=== PATIENT | female | born 1990 | race Caucasian/White ===

== ENCOUNTER 2018-09-22 06:10 | Emergency (ER) | payer BC, OTHER ==
--- NOTE | 2018-09-22 06:28 | PDOC ---
Attending Attestation - Resident Resident Name: Fer Anthony - ED Attending Attestation I have performed the following: I have examined & evaluated the patient, The case was reviewed & discussed with the resident, I agree w/resident's findings & plan, Exceptions are as noted - HPI HPI: 09/22/18 06:28 The patient is a 27 year old female with a PMH of neutropenia who presents with right shoulder pain and probable dislocation during sexual intercourse. Patient states she has dislocated her right shoulder 3 other times in the past. Patient reports the last time she dislocated her shoulder she was evaluated by ortho and sent to physical therapy. She notes the right shoulder pain today feels like her prior dislocations. The patient denies chest pain, shortness of breath, headache and dizziness. Denies fever, chills, nausea, vomit, diarrhea and constipation. Denies dysuria, frequency, urgency and hematuria. Allergies: NKA Past surgical history: None reported Social history: No reported alcohol, drug or cigarette use. - Physicial Exam PE: 09/22/18 07:13 GENERAL: Awake, alert, and fully oriented, in no acute distress HEAD: No signs of trauma EYES: PERRLA, EOMI, sclera anicteric, conjunctiva clear ENT: Oropharynx clear without exudates. Moist mucosa NECK: Normal ROM, supple, no lymphadenopathy, JVD, or masses LUNGS: Breath sounds equal, clear to auscultation bilaterally. No wheezes, and no crackles HEART: Regular rate and rhythm, normal S1 and S2, no murmurs, rubs or gallops ABDOMEN: Soft, nontender, normoactive bowel sounds. No guarding, no rebound. No masses EXTREMITIES: RUE reduced while pt was ranging it. No deformity. 2+ radial pulse. Normal sensation over R shoulder. Normal sensation and strength to distal RUE. NEUROLOGICAL: Normal speech, cranial nerves intact, equal strength and sensation b/l SKIN: Warm, Dry, normal turgor, no rashes or lesions noted. - Medical Decision Making 09/22/18 07:14 27yo F hx shoulder dislocation presents with shoulder dislocation that self reduced in ED. RUE NVI. Plan for UPT, CXR to r/o fracture, likely DC. Case signed out to Dr. Combs for further mgmt/dispo
--- NOTE | 2018-09-22 06:35 | PDOC ---
History of Present Illness - History of Present Illness Initial Comments: 09/22/18 06:27 Ms. Newby is a 27 yo female w/ pmh of neutropenia who presents for evaluation of R shoulder pain. Patient reports she believes shoulder is dislocated as she has had several similar instances in the past. Patient reports pain started during sex this AM. Denies any trauma to area. The patient denies chest pain, shortness of breath, headache and dizziness. Denies fever, chills, nausea, vomit, diarrhea and constipation. Denies dysuria, frequency, urgency and hematuria. <Fer Anthony - Last Filed: 09/22/18 07:11> <Ian Combs - Last Filed: 09/22/18 07:57> - General Chief Complaint: Shoulder Dislocation Stated Complaint: R ARM INJURY Time Seen by Provider: 09/22/18 06:12 Past History - Suicide/Smoking/Psychosocial Hx Smoking History: Never smoked Have you smoked in the past 12 months: No Information on smoking cessation initiated: No Hx Alcohol Use: No Drug/Substance Use Hx: No <Fer Anthony - Last Filed: 09/22/18 07:11> <Ian Combs - Last Filed: 09/22/18 07:57> - Past Medical History Allergies/Adverse Reactions: Allergies Allergy/AdvReac Type Severity Reaction Status Date / Time No Known Allergies Allergy Verified 09/22/18 06:18 Home Medications: Ambulatory Orders NK [No Known Home Medication] 09/22/18 Review of Systems - Review of Systems Comments:: 09/22/18 06:29 GENERAL/CONSTITUTIONAL: No fever or chills. No weakness. HEAD, EYES, EARS, NOSE AND THROAT: No change in vision. No ear pain or discharge. No sore throat. CARDIOVASCULAR: No chest pain or shortness of breath RESPIRATORY: No cough, wheezing, or hemoptysis. GASTROINTESTINAL: No nausea, vomiting, diarrhea or constipation. GENITOURINARY: No dysuria, frequency, or change in urination. MUSCULOSKELETAL: +R shoulder pain as described. SKIN: No rash NEUROLOGIC: No headache, vertigo, loss of consciousness, or change in strength/ sensation. ENDOCRINE: No increased thirst. No abnormal weight change HEMATOLOGIC/LYMPHATIC: No anemia, easy bleeding, or history of blood clots. ALLERGIC/IMMUNOLOGIC: No hives or skin allergy. <Fer Anthony - Last Filed: 09/22/18 07:11> *Physical Exam - Vital Signs Last Vital Signs Temp Pulse Resp BP Pulse Ox 92 H 22 H 141/81 99 09/22/18 06:10 09/22/18 06:10 09/22/18 06:10 09/22/18 06:10 - Physical Exam Comments: 09/22/18 06:29 GENERAL: Awake, alert, and fully oriented, in no acute distress HEAD: No signs of trauma, normocephalic, atraumatic EYES: PERRLA, EOMI, sclera anicteric, conjunctiva clear ENT: Auricles normal inspection, hearing grossly normal, nares patent, oropharynx clear without exudates. Moist mucosa NECK: Normal ROM, supple, no lymphadenopathy, JVD, or masses LUNGS: No distress, speaks full sentences, clear to auscultation bilaterally HEART: Regular rate and rhythm, normal S1 and S2, no murmurs, rubs or gallops, peripheral pulses normal and equal bilaterally. ABDOMEN: Soft, nontender, normoactive bowel sounds. No guarding, no rebound. No masses EXTREMITIES: +R shoulder exam changed during examination. Originally TTP at R shoulder and patient unable to move due to pain. Patient moved and reported shoulder pain alleviated and patient able to move w/out difficulty. Extremity neurovascularly intact throughout exam. NEUROLOGICAL: Cranial nerves II through XII grossly intact. Normal speech, normal gait, no focal sensorimotor deficits SKIN: Warm, Dry, normal turgor, no rashes or lesions noted. <Fer Anthony - Last Filed: 09/22/18 07:11> - Vital Signs Last Vital Signs Temp Pulse Resp BP Pulse Ox 98.2 F 92 H 22 H 141/81 99 09/22/18 07:43 09/22/18 06:10 09/22/18 06:10 09/22/18 06:10 09/22/18 06:10 <Ian Combs - Last Filed: 09/22/18 07:57> ED Treatment Course - RADIOLOGY Radiology Studies Ordered: Category Date Time Status SHOULDER-RIGHT [RAD] Stat Radiology 09/22/18 06:12 Ordered <Fer Anthony - Last Filed: 09/22/18 07:11> - ADDITIONAL ORDERS Additional order review: Laboratory Results 09/22/18 06:31 Urine HCG, Qual Negative <Ian Combs - Last Filed: 09/22/18 07:57> Medical Decision Making - Medical Decision Making 09/22/18 06:31 Ms. Newby is a 27 yo female w/ pmh as described who presents for evaluation of suspected shoulder dislocation. Patient exam suddenly improved while interviewer present c/w shoulder self reducing. Patient will provide urine and have XR to confirm shoulder in place. 09/22/18 06:57 Patient currently pending imaging. Patient signed out to Dr. Combs for further evaluation. <Fer Anthony - Last Filed: 09/22/18 07:11> *DC/Admit/Observation/Transfer <Fer Anthony - Last Filed: 09/22/18 07:11> <Ian Combs - Last Filed: 09/22/18 07:57> Diagnosis at time of Disposition: Shoulder pain, right Qualifiers: Chronicity: acute Qualified Code(s): M25.511 - Pain in right shoulder - Discharge Dispostion Disposition: HOME Condition at time of disposition: Fair - Referrals Referrals: Alejandro Schwartz MD [Staff Physician] - - Patient Instructions Printed Discharge Instructions: DI for Shoulder Dislocation Additional Instructions: You were evaluated today in the ER for your shoulder pain which resolved suddenly in the ER. Your Xrays were normal and you are safe for follow-up outpatient for further evaluation. Return to ER if any further pain, difficulty moving your shoulder, or other concerning symptoms.
[2018-09-22 06:52] VITALS: BP 141/81; BMI 24.2
[2018-09-22 07:43] VITALS: TEMP 98.2
[2018-09-22 08:13] VITALS: PULSE 75
== END 2018-09-22 08:13 | disposition home or self-care (01) ==
LOC: JER 06:10
DX: M25.511 Pain in right shoulder (principal); D70.9 Neutropenia, unspecified
CPT/HCPCS: 73030-TC-RT-FY; 84703; 99283-25

== ENCOUNTER 2019-02-24 12:29 | Emergency (ER) | payer BC, OTHER ==
[2019-02-24] MEDS ORDERED: morphine CARPU-JECT 4 MG/1 ML DISP.SYRIN IVPUSH ONE (12:39)
[2019-02-24] MEDS ORDERED: morphine SULFATE 4 MG/ML VIAL ONE (12:39)
--- NOTE | 2019-02-24 12:51 | PDOC ---
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 Last dislocation was September 2018. Per the patient, she used fentanyl previously for the reduction and had severe nausea and vomiting. Currently having right shoulder pain without numbness and motor deficit in the right wrist and fingers. Past History - Past Medical History Allergies/Adverse Reactions: Allergies Allergy/AdvReac Type Severity Reaction Status Date / Time No Known Allergies Allergy Verified 02/24/19 12:53 Home Medications: Ambulatory Orders NK [No Known Home Medication] 09/22/18 COPD: No - Suicide/Smoking/Psychosocial Hx Smoking History: Never smoked Have you smoked in the past 12 months: No Hx Alcohol Use: No Drug/Substance Use Hx: No Review of Systems - Review of Systems Able to Perform ROS?: Yes Is the patient limited Korean proficient: No Constitutional: No: Chills, Diaphoresis, Fever, Weakness HEENTM: No: Eye Pain, Ear Pain, Nose Pain, Tinnitus, Throat Pain, Mouth Pain Respiratory: No: Cough, Shortness of Breath, Hemoptysis Cardiac (ROS): No: Chest Pain, Lightheadedness, Palpitations, Syncope, Chest Tightness ABD/GI: No: Constipated, Diarrhea, Nausea, Rectal Bleeding, Vomiting, Tarry Stools : No: Burning, Dysuria, Hematuria, Incontinence Musculoskeletal: Yes: Joint Pain (right shoulder pain). No: Back Pain, Muscle Weakness Integumentary: No: Bruising, Erythema, Flushing, Rash Neurological: No: Headache, Numbness, Tingling, Tremors Psychiatric: No: Change in Appetite Endocrine: No: Unexplained Weight Gain Hematologic/Lymphatic: No: Anemia *Physical Exam - Physical Exam General Appearance: Yes: Nourished, Appropriately Dressed. No: Apparent Distress, Intoxicated HEENT: positive: EOMI, MILLIE, Normal Voice, Symmetrical, Pharynx Normal, Hearing Grossly Normal. negative: Pale Conjunctivae, Scleral Icterus (R), Scleral Icterus (L), Muffled/Hoarse voice, Pharyngeal Erythema, Tonsillar Exudate, Tonsillar Erythema, Nasal Congestion, Rhinorrhea, Sinus Tenderness, Hearing Decreased Neck: positive: Trachea midline, Supple. negative: Tender, Lymphadenopathy (R) , Lymphadenopathy (L), Tender lateral, Tender midline Respiratory/Chest: positive: Lungs Clear, Normal Breath Sounds. negative: Chest Tender, Respiratory Distress, Accessory Muscle Use, Crackles, Rales, Rhonchi, Stridor, Wheezing Cardiovascular: positive: Regular Rhythm, Regular Rate, S1, S2. negative: Systolic Murmur Gastrointestinal/Abdominal: positive: Normal Bowel Sounds, Flat, Soft. negative : Tender Lymphatic: negative: Adenopathy Musculoskeletal: positive: Normal Inspection. negative: CVA Tenderness, Vertebral Tenderness Extremity: positive: Normal Capillary Refill, Tender (right shoulder joint). negative: Normal Inspection (visibly dislocated), Normal Range of Motion ( unable to abduct right shoulder), Swelling, Calf Tenderness Integumentary: positive: Normal Color, Dry, Warm. negative: Swelling, Ecchymosis Neurologic: positive: patient care specialist II-XII NML intact, Fully Oriented, Alert, Normal Mood/ Affect. negative: EOM Palsy, Facial Droop, Sensory Deficit (intact neurovascular in the right arm pre reduction) Medical Decision Making - Medical Decision Making 28 yo F with a hx of recurrent shoulder dislocations on the right side presents to the emergency department with right shoulder pain after throwing a joseph pin at 11:45 am. Initial vitals: Initial Vital Signs Temp Pulse Resp BP Pulse Ox 98.5 F 80 16 160/90 100 02/24/19 12:30 02/24/19 12:30 02/24/19 12:30 02/24/19 12:30 02/24/19 12:30 Work up: serum and right shoulder xray. suspect anterior shoulder dislocation. pre-procedure xray shows anterior right shoulder dislocation. Patient to have procedure of reduction of the right shoulder. Patient was given benefits and risks associated with the procedure. In addition, will also be getting consent for sedation. Consent form signed by the patient and in physical chart. Negative Patient was given 160 mg of propofol, 80 mg of ketamine, and 4 mg of versed. A reduction was attempted but the patient was still awake and the shoulder was initially reduced and then dislocated. Anesthesia was called and the SPRAY MIXER gave 300 mg push of profol. Patient's shoulder was successfully reduced and post procedure xrays shows correction of shoulder dislocation. Post reduction neurovascular inact. Will refer to Dr. Rebollar for follow up care. *DC/Admit/Observation/Transfer Diagnosis at time of Disposition: Anterior shoulder dislocation - Discharge Dispostion Disposition: HOME Decision to Admit order: No - Referrals Referrals: Efraín Rebollar DO [Staff Physician] - - Patient Instructions Printed Discharge Instructions: DI for Shoulder Dislocation Additional Instructions: You were seen in the emergency department for the evaluation of your shoulder dislocation. It was successfully reduced. Please return to the emergency department if it dislocated again. Please follow up with Dr. Rebollar within 1 week after discharge. Do not do physical activity with the right shoulder. - Post Discharge Activity
[2019-02-24 12:53] VITALS: PULSE 80; TEMP 98.5; BMI 25.8
[2019-02-24] MEDS ORDERED: ONDANSETRON 4 MG/2 ML VIAL IVPUSH ONE (12:54)
[2019-02-24] MEDS ORDERED: PROPOFOL 200 MG/20 ML VIAL IVPUSH ONE (13:17)
[2019-02-24] MEDS ORDERED: KETAMINE HCL 200 MG/20 ML VIAL IVPUSH ONE (13:18)
[2019-02-24] MEDS ORDERED: ONDANSETRON 4 MG/2 ML VIAL ONE (13:20)
[2019-02-24] MEDS ORDERED: SODIUM CHLORIDE 1,000 ML IV STA (13:38)
--- NOTE | 2019-02-24 14:02 | PDOC ---
Attending Attestation - Resident Resident Name: Newton Ramey - ED Attending Attestation I have performed the following: I have examined & evaluated the patient, The case was reviewed & discussed with the resident, I agree w/resident's findings & plan, Exceptions are as noted - HPI HPI: 28 yo F history prior shoulder dislocations presents with R shoulder pain. She states it started after she threw a joseph pin, she felt a pop, felt like prior dislocations. +Severe pain to R shoulder, unable to move it. No other injuries. No direct trauma. - Physicial Exam PE: GENERAL: Awake, alert, and fully oriented, in no acute distress HEAD: No signs of trauma EYES: PERRLA, EOMI, sclera anicteric, conjunctiva clear ENT: Auricles normal inspection, hearing grossly normal, nares patent, oropharynx clear without exudates. Moist mucosa NECK: Normal ROM, supple, no lymphadenopathy, JVD, or masses LUNGS: Breath sounds equal, clear to auscultation bilaterally. No wheezes, and no crackles HEART: Regular rate and rhythm, normal S1 and S2, no murmurs, rubs or gallops ABDOMEN: Soft, nontender, normoactive bowel sounds. No guarding, no rebound. No masses EXTREMITIES: R shoulder with dec ROM due to pain. +Deformity at the glenohumeral joint. Distal N/V intact. Remainder of extremities with normal range of motion, no edema. No clubbing or cyanosis. No cords, erythema, or tenderness NEUROLOGICAL: Cranial nerves II through XII grossly intact. Normal speech, normal gait. Motor and sensation intact SKIN: Warm, dry, normal turgor, no rashes or lesions noted. - Medical Decision Making Pt with recurrent shoulder dislocation. Will sedate for reduction, as she is in severe pain and cannot reduce awake in this state.
[2019-02-24] MEDS ORDERED: PROPOFOL 20 ML ONE (14:06)
[2019-02-24] MEDS ORDERED: KETAMINE HCL 200 MG/20 ML VIAL ONE (14:07)
[2019-02-24] MEDS ORDERED: MIDAZOLAM HCL 2 MG/2 ML SINGLE DOSE VIAL ONE (14:34)
[2019-02-25 01:33] VITALS: BP 110/62
== END 2019-02-24 16:26 | disposition home or self-care (01) ==
LOC: JER 12:29
PROC: 3E0337Z Introduction of Electrolytic and Water Balance Substance into Peripheral Vein, Percutaneous Approach (ICD-10-PCS; principal; 2019-02-24)
PROC: 3E033NZ Introduction of Analgesics, Hypnotics, Sedatives into Peripheral Vein, Percutaneous Approach (ICD-10-PCS; 2019-02-24)
PROC: 3E033GC Introduction of Other Therapeutic Substance into Peripheral Vein, Percutaneous Approach (ICD-10-PCS; 2019-02-24)
PROC: 0RSJXZZ Reposition Right Shoulder Joint, External Approach (ICD-10-PCS; 2019-02-24)
DX: S43.084A Other dislocation of right shoulder joint, initial encounter (principal); X58.XXXA Exposure to other specified factors, initial encounter; Y93.89 Activity, other specified; Y92.89 Other specified places as the place of occurrence of the external cause
CPT/HCPCS: 36415; 73030-TC-RT-FY; 84703; 99283-25; J7030